=== PATIENT | female | born 1990 | race Caucasian/White ===

== ENCOUNTER → 2017-09-03 | Outpatient (CLI) | payer OTHER ==
[~2017-09-03] VITALS: Ht 185.4 cm; Wt 95.0 kg
[~2017-09-03] MED LIST: NEXPLANON68 MG ID; PROPRANOLOL HCL40 M2 PO; WELLBUTRIN PO
[2017-09-03 18:20] VITALS: BP 120/88
== END ==
LOC: AMSURD 18:24
DX: R42 Dizziness and giddiness (principal); R00.1 Bradycardia, unspecified